=== PATIENT | male | born 1970 | race Caucasian/White ===

== ENCOUNTER 2024-01-29 09:38 | Emergency (ER) | payer OTHER ==
--- NOTE | 2024-01-29 10:04 | ED ---
General Adult HPI - General Chief complaint: Head Injury Stated complaint: Head Laceration Time Seen by Provider: 01/29/24 09:47 Source: patient, family, RN notes reviewed, old records reviewed Mode of arrival: ambulatory - History of Present Illness Initial comments: 53-year-old male presents for evaluation of head injury, low back pain, left ankle pain. Patient fell from a ladder yesterday early afternoon. He states he had gone home and his family had bandaged the laceration on the back of his scalp. He developed low back pain and left ankle pain as result. Patient un certain if the left ankle pain is from the fall or from a recurrence of his gout. No loss consciousness. Patient denies headache. - Related Data Previous Rx's Medication Instructions Recorded Ibuprofen [Motrin] 600 mg PO Q8HR PRN #24 tab 01/29/24 Allergies Allergy/AdvReac Type Severity Reaction Status Date / Time No Known Allergies Allergy Verified 12/30/15 19:01 Review of Systems ROS Statement: Those systems with pertinent positive or pertinent negative responses have been documented in the HPI. ROS Other: All systems not noted in ROS Statement are negative. Past Medical History Past Medical History: No Reported History History of Any Multi-Drug Resistant Organisms: None Reported Past Surgical History: No Surgical Hx Reported Past Psychological History: No Psychological Hx Reported Past Alcohol Use History: Daily Past Drug Use History: None Reported General Exam General appearance: alert, in no apparent distress Head exam: Present: other (6 centimeter linear laceration on the occipital scalp no active bleeding) Eye exam: Present: PERRL, EOMI Neck exam: Present: normal inspection. Absent: tenderness, meningismus Respiratory exam: Present: normal lung sounds bilaterally. Absent: respiratory distress, wheezes Cardiovascular Exam: Present: regular rate, normal rhythm Extremities exam: Present: joint swelling (Left ankle swelling and tenderness to palpation medial aspect) Back exam: Present: paraspinal tenderness (Lumbar) Neurological exam: Present: alert, oriented X3 Psychiatric exam: Present: normal affect, normal mood Skin exam: Present: warm, dry Course Vital Signs 01/29/24 09:41 Temperature 97 F L Pulse Rate 86 Respiratory 16 Rate Blood Pressure 128/76 O2 Sat by Pulse 98 Oximetry - Reevaluation(s) Reevaluation #1: 01/29/24 10:[address] stating he has no headache and does not want imaging of his brain. Patient informed of the delay in primary closure and risk of infection. Patient does not want luis fernando or stitches at this time. He prefers rebandaging. Patient reluctant but willing to accept tetanus prophylaxis. Medical Decision Making - Medical Decision Making Was pt. sent in by a medical professional or institution ([facility] Andrade, [facility], urgent care, hospital, or senior care...) When possible be specific @ -No Did you speak to anyone other than the patient for history (EMS, parent, family, police, friend...)? What history was obtained from this source @ -No Did you review nursing and triage notes (agree or disagree)? Why? @ -I reviewed and agree with nursing and triage notes Were old charts reviewed (outside hosp., previous admission, EMS record, old EKG, old radiological studies, urgent care reports/EKG's, senior care records)? Report findings @ -No old charts were reviewed Differential Musculoskeletal Muscular strain, contusion, ligament sprain, fracture, arthritis, septic arthritis, bursitis, cellulitis, muscle spasm, nerve compression, DVT, arterial occlusion, herpes zoster, electrolyte abnormality, tumor.... This is not meant to be in all inclusive list EKG interpreted by me (3pts min.). @ -As above X-rays interpreted by me (1pt min.). @X-rays of the lumbar spine and left ankle are obtained, negative for displaced fracture, there is soft tissue swelling in the ankle consistent with exam. CT interpreted by me (1pt min.). @ -None done U/S interpreted by me (1pt. min.). @ -None done What testing was considered but not performed or refused? (CT, X-rays, U/S, labs)? Why? @ -None What meds were considered but not given or refused? Why? @ -None Did you discuss the management of the patient with other professionals (professionals i.e. [facility] Andrade, [facility], lab, RT, psych nurse, social work lecturer, epitaxial reactor technician, teacher, control systems drafting officer, case work aide)? Give summary @ -No Was smoking cessation discussed for >3mins.? @ -No Was critical care preformed (if so, how long)? @ -No Were there social determinants of health that impacted care today? How? (Homelessness, low income, unemployed, alcoholism, drug addiction, transportation, low edu. Level, literacy, decrease access to med. care, alf, rehab)? @ -No Was there de-escalation of care discussed even if they declined (Discuss DNR or withdrawal of care, Hospice)? DNR status @ -No What co-morbidities impacted this encounter? (DM, HTN, Smoking, COPD, CAD, Cancer, CVA, ARF, Chemo, Hep., AIDS, mental health diagnosis, sleep apnea, morbid obesity)? @ -None Was patient admitted / discharged? Hospital course, mention meds given and route, prescriptions, significant lab abnormalities, going to OR and other pertinent info. @ -53-year-old male with fall from ladder yesterday. Patient's chief complaint is low back pain and left ankle pain. He does not have a headache or neck pain. Patient has a 6 cm laceration to the occipital scalp without hematoma or active bleeding. This appears superficial and appears to be healing appropriately at approximately 22 hours post injury. We discussed possibility of repair but the patient declines. Patient also declines head CT for brain imaging and ruling out intracranial hemorrhage. X-rays are negative for displaced fracture. Patient's tetanus is updated. His laceration is cleansed and bacitracin ointment is applied as well as fresh bandaging. Patient will take Motrin for his low back and ankle pain. Undiagnosed new problem with uncertain prognosis? @ -No Drug Therapy requiring intensive monitoring for toxicity (Heparin, Nitro, Insulin, Cardizem)? @ -No Were any procedures done? @ -No Diagnosis/symptom? @ -Scalp laceration, low back strain, ankle sprain Acute, or Chronic, or Acute on Chronic? @ -Acute Uncomplicated (without systemic symptoms) or Complicated (systemic symptoms)? @ -Default Side effects of treatment? @ -No Exacerbation, Progression, or Severe Exacerbation? @ -No Poses a threat to life or bodily function? How? (Chest pain, [place], [place], pneumonia, PE, COPD, DKA, ARF, appy, cholecystitis, CVA, Diverticulitis, Homicidal, Suicidal, threat to staff... and all critical care pts) @ -No Disposition Clinical Impression: Scalp laceration, Low back strain, Ankle swelling Disposition: HOME SELF-CARE Condition: Fair Instructions (If sedation given, give patient instructions): Laceration (ED), Swollen Ankle Joint (ED), Acute Low Back Pain (ED) Prescriptions: Ibuprofen [Motrin] 600 mg PO Q8HR PRN #24 tab PRN Reason: Pain Is patient prescribed a controlled substance at d/c from ED?: No Referrals: [facility] [NON-STAFF] - 1-2 days [facility] [NON-STAFF] - 1-2 days None,Stated [Primary Care Provider] - 1-2 days Time of Disposition: 10:36
--- NOTE | 2024-01-29 10:54 | XR ---
EXAMINATION TYPE: XR lumbar spine 2 or 3V DATE OF EXAM: 01/29/2024 10:21 AM CLINICAL INDICATION: Male, 53 years old with history of fall; COMPARISON: None TECHNIQUE: XR lumbar spine 2 or 3V - Frontal, lateral and coned in L5-S1 lateral views of the spine. FINDINGS: No evidence of any acute osseous pathology. No evidence of loss of vertebral body height i s seen. There is normal alignment of the lumbar vertebral bodies. Scattered disc space narrowing. Mul tilevel marginal osteophyte formation throughout the visualized spine. There is facet joint arthropat hy throughout the spine. Scattered at least mild neural foraminal stenosis. IMPRESSION: 1. No acute fracture. 2. Mild to moderate multilevel disc degeneration. [facility], , 01/29/2024 10:52 AM
[2024-01-29] MEDS: DIPH,PERTUS(ACELL)TETVAC-LF 0.5 ML VIAL IM ONE (10:55)
[2024-01-29] MEDS: BACITRACIN OINT 1 EACH PACKET TOPICAL ONE (10:55)
--- NOTE | 2024-01-29 10:58 | XR ---
EXAMINATION TYPE: XR ankle complete LT DATE OF EXAM: 01/29/2024 10:21 AM CLINICAL INDICATION: Male, 53 years old with history of fall; COMPARISON: None TECHNIQUE: XR ankle complete LT; ankle is imaged in frontal, lateral and oblique projections. FINDINGS: No radiographic evidence to suggest gout. There is no evidence of acute osseous pathology. No eviden ce of subluxation or dislocation. Kager's fat pad is intact. Mild soft tissue swelling around the ank le. No radiopaque foreign bodies are identified. IMPRESSION: 1. No evidence for gout. 2. No evidence of acute fracture. 3. Subcutaneous swelling around the ankle. [facility], , 01/29/2024 10:55 AM
[2024-01-29 11:19] VITALS: BP 135/90; PULSE 87; RESP 18
[2024-01-29 11:24] VITALS: TEMP 99.6
== END 2024-01-29 11:31 | disposition home or self-care (01) ==
LOC: EC 09:38
DX: S01.91XA Laceration without foreign body of unspecified part of head, initial encounter
CPT/HCPCS: 72100; 90471; 90715; 99283